=== PATIENT | female | born 1985 | race Caucasian/White ===

== ENCOUNTER 2016-11-25 22:57 | Emergency (ER) | payer MEDICAID ==
[~2016-11-25] VITALS: Ht 167.6 cm; Wt 78.0 kg
[~2016-11-25 22:57] MED LIST: ALBUAER3 INH; BACT800T5 PO; IBUP800T23 PO; MEDR150I IM; NORE1TAB58 PO; PROZ20CA11 PO; SELE1SHA3 TOPICAL; TRAM50TA PO; TRIA.1%T TOPICAL
[2016-11-25 22:59] VITALS: BP 137/64; PULSE 94; RESP 18; TEMP 98.2; O2SAT 99
[2016-11-26] MEDS ORDERED: LIDOCAINE 1%/EPINEPHrine 1:100,000 SOLN 20 ML VIAL ONE (02:37)
[2016-11-26] MEDS ORDERED: LIDOCAINE 0.5%/EPINEPHrine 1:200,000 SOLN 50 ML VIAL INFIL ONE (02:45)
[2016-11-26] MEDS ORDERED: ACETAMINOPHEN/CODEINE 300 MG/30 MG TAB PO ONE ×2 (02:45→04:00)
[2016-11-26] MEDS ORDERED: DOXYCYCLINE INJ 100 MG in SODIUM CHLORIDE 0.9% INJ 100 ML IV ONE (02:45)
[2016-11-26] MEDS ORDERED: cefTRIAXone INJ 1,000 MG in SODIUM CHLORIDE 0.9% INJ 100 ML IV ONE (02:45)
[2016-11-26 02:59] LABS: AUTOMATED NEUTROPHIL # 7.9 TH/MM3 (1.8-7.7); BASOPHIL % 0.4 % (0.0-2.0); EOSINOPHIL # 0.2 TH/MM3 (0-0.4); EOSINOPHIL % 1.4 % (0.0-4.0); HEMATOCRIT 38.9 % (35.0-46.0); HEMO FLAGS DIFF FINAL; LYMPH % 23.1 % (9.0-44.0); LYMPHOCYTE # 2.6 TH/MM3 (1.0-4.8); MEAN CELL VOLUME 90.6 FL (80.0-100.0); MEAN CORPUSCULAR HGB CONC 33.1 % (32.0-36.0); MONO % 5.2 % (0.0-8.0); NEUT % 69.9 % (16.0-70.0); PLATELET COUNT 226 TH/MM3 (150-450); RED CELL DISTRIBUTION WIDTH 13.8 % (11.6-17.2); WHITE BLOOD COUNT 11.3 TH/MM3 (4.0-11.0)
[2016-11-26] MEDS ORDERED: LORazepam 2 MG/ML VIAL ONE (03:23)
--- NOTE | 2016-11-26 03:36 | PD ---
HPI Chief Complaint: Skin Problem Time Seen by Provider: 02:11 Travel History International Travel<30 days: No Contact w/Intl Traveler<30days: No Traveled to known affect area: No History of Present Illness HPI This is a 30-year-old female who presents with a complaint of tenderness or redness warmth and swelling to the right forearm times several days patient denies fevers and chills. He is uncertain whether or not she is been bitten by an insect. PFSH Past Medical History Asthma: Yes Bipolar Disorder: Yes Anxiety: Yes Heart Rhythm Problems: Yes Cancer: No Diminished Hearing: No Endocrine: No Implanted Vascular Access Dvce: Yes Kidney Stones: Yes Musculoskeletal: Yes (SCOLIOSIS) Reproductive: No Myocardial Infarction: Yes (PT STATES [place] IN PAST, NO FOLLOW UP) Seizures: Yes ?: Not LMP: 11/19/16 : 3 Para: 2 Miscarriage: 1 : 1 Ovarian Cysts: Yes Past Surgical History Body Medical Devices: implanon in [place] Cholecystectomy: Yes Pacemaker: No Tonsillectomy: Yes Other Surgery: Yes Social History Alcohol Use: Yes (RARE) Tobacco Use: Yes (RARE) Substance Use: No Allergies-Medications (Allergen,Severity, Reaction): Coded Allergies: No Known Allergies (Verified , 11/25/16) Reported Meds & Prescriptions Reported Meds & Active Scripts Active Tylenol-Codeine #3 (Acetaminophen-Codeine) 300-30 mg Tab 1 Tab PO Q6-Q8 PRN Doxycycline Hyclate 100 Mg Cap 100 Mg PO BID 10 Days Keflex (Cephalexin) 500 Mg Cap 500 Mg PO Q12H 10 Days Tramadol (Tramadol HCl) 50 Mg Tab 100 Mg PO BID PRN Prozac (Fluoxetine HCl) 20 Mg Cap 20 Mg PO DAILY Loestrin Fe 1.5/30 (Norethindrone-Ethinyl Estradiol-Fe) 1.5-30 Mg-Mcg Tab 1 Tab PO DAILY Medroxyprogesterone Inj 150 Mg/Ml Inj 150 Mg IM Q90D Review of Systems ROS Limitations: Clinical Condition General / Constitutional: No: Fever, Chills, Weight Gain, Weight Loss, Other Eyes: No: Diploplia, Blurred Vision, Photophobia, Drainage, Redness, Foreign Body Sensation, Pain, Tearing, Blind Spots, Visual changes, Blindness, Other HENT: No: Headaches, Vertigo, Lightheadedness, Sore Throat, Rhinitis, Rhinorrhea, Congestion, Nosebleed, Neck Stiffness, Neck Pain, Masses, Gingival Bleeding, Dental Difficulties, Ear Discharge, Earache, Other Cardiovascular: No: Chest Pain or Discomfort, Palpitations, Irregular Rhythm, Tachycardia, Diaphoresis, Syncope, Dyspnea on exertion, Varicosities, Edema, Cyanosis, Varicosities, Phlebitis, Claudication, Other Respiratory: No: Cough, Shortness of Breath, Wheezing, Sneezing, Orthopnea, Hemoptysis, Stridor, Night Sweats, Pleuritic Pain, Other Gastrointestinal: No: Nausea, Vomiting, Diarrhea, Abdominal Pain, Hematemesis, Hematochezia, Constipation, Changes in Bowel Habits, Indigestion, Dysphagia, Loss of Appetite, Other Genitourinary: No: Urgency, Frequency, Dysuria, Nocturia, Hematuria, Decreased Urinary Output, Oliguria, Hesitancy, Dribbling, Incontinence, Pelvic Pain, Flank Pain, Dyspareunia, Discharge, Dysmenorrhea, Menorrhagia, Metorrhagia, Vaginal Bleeding, Other Musculoskeletal: No: Myalgias, Arthralgias, Limited ROM, Weakness, Cramping, Edema, Pain, Atrophy, Other Skin: Positive Lumps, Positive Lesions, Positive Other (change in:) Neurologic: No: Weakness, Dizziness, Syncope, Focal Abnormalities, Coordination Problem, Tremor, Ataxia, Headache, Change in Mentation, Slurred Speech, Paresthesia, Incontinence, Seizures, Sensory Disturbance, Other Psychiatric: No: Anxiety, Depression, Suicidal Ideations, Disorder of Thought, Mood Disorder, Substance Abuse, Homicidal Ideation, Other Endocrine: No: Heat Intolerance, Cold Intolerance, Polyuria, Polydipsia, Other Hematologic/Lymphatic: No: Easy Bruising, Lymph Node Enlargement, Other Data Data Last Documented VS Vital Signs Date Time Temp Pulse Resp B/P Pulse Ox O2 Delivery O2 Flow Rate FiO2 11/25/16 22:59 98.2 94 18 137/64 99 Room Air Orders Complete Blood Count With Diff (11/26/16 02:33) Tray, Incision & Drainage Ea (11/26/16 02:33) Acetamin-Codeine 300-30 Mg (Tylenol-Code (11/26/16 02:45) Ceftriaxone Inj (Rocephin Inj) (11/26/16 02:45) Doxycycline Inj (Vibramycin Inj) (11/26/16 02:45) Lidocai-Epi 0.5%-1:200,000 Inj (Xylocain (11/26/16 02:45) Lidocai-Epi 1%-1:100,000 Inj (Xylocaine- (11/26/16 02:37) Lorazepam Inj (Ativan Inj) (11/26/16 03:23) Wound Culture And Gram Stain (11/26/16 03:51) Acetamin-Codeine 300-30 Mg (Tylenol-Code (11/26/16 04:00) Labs Laboratory Tests Test 11/26/16 02:40 White Blood Count 11.3 TH/MM3 Red Blood Count 4.30 MIL/MM3 Hemoglobin 12.9 GM/DL Hematocrit 38.9 % Mean Corpuscular Volume 90.6 FL Mean Corpuscular Hemoglobin 30.0 PG Mean Corpuscular Hemoglobin 33.1 % Concent Red Cell Distribution Width 13.8 % Platelet Count 226 TH/MM3 Mean Platelet Volume 10.4 FL Neutrophils (%) (Auto) 69.9 % Lymphocytes (%) (Auto) 23.1 % Monocytes (%) (Auto) 5.2 % Eosinophils (%) (Auto) 1.4 % Basophils (%) (Auto) 0.4 % Neutrophils # (Auto) 7.9 TH/MM3 Lymphocytes # (Auto) 2.6 TH/MM3 Monocytes # (Auto) 0.6 TH/MM3 Eosinophils # (Auto) 0.2 TH/MM3 Basophils # (Auto) 0.0 TH/MM3 CBC Comment DIFF FINAL Differential Comment MDM Medical Decision Making Medical Screen Exam Complete: Yes Emergency Medical Condition: Yes Medical Record Reviewed: Yes Differential Diagnosis Differential diagnosis skin abscess cellulitis and insect bite Narrative Course His is a 22-year-old female presents with complaint of redness and tenderness of the right forearm and given Tylenol 3 then area cleaned with ChloraPrep and anesthetized with lidocaine with epi 1% using an 11 and scalpel and incised and purulent discharge expressed from the wound wound irrigated with normal saline after wound culture obtained Patient not tolerating procedure well as Dr. frank placed nonrebreather mask and gave patient 0.25 mg Ativan a stable tolerated the rest of the procedure which included packing of the wound iodoform gauze. Wound dressed with 4 x 4 and Kerlix and secured with tape patient instructed to return in 48 hours for wound check and further management She was given a dose of IV Rocephin and IV doxycycline to be discharged on Tylenol 3 doxycycline and Keflex Diagnosis Primary Impression: skin abscess Additional Impression: incision and drainage Scripts Acetaminophen-Codeine (Tylenol-Codeine #3)300-30 mg Tab1 Tab PO q6-q8 PRN (PAIN ) #15 TAB Ref 0 Prov:Jojo Cason MD 11/26/16 Doxycycline Hyclate 100 Mg [id number] Mg PO BID 10 Days Ref 0 Prov:Jojo Cason MD 11/26/16 Cephalexin (Keflex)500 Mg [id number] Mg PO Q12H 10 Days Ref 0 Prov:Jojo Cason MD 11/26/16 Disposition: 01 DISCHARGE HOME Condition: Stable Jojo Cason MD Nov 26, 2016 03:36
[2016-11-26] MEDS ORDERED: CEPH-460 PO (03:42)
[2016-11-26] MEDS ORDERED: DOXY100C PO (03:42)
[2016-11-26] MEDS ORDERED: TYLETAB34 PO (03:43)
[2016-11-26] MEDS ORDERED: LORazepam 2 MG/ML VIAL IV PUSH ONE (04:00)
== END 2016-11-26 04:25 | disposition home or self-care (01) ==
LOC: NEPC 22:57
DX: L02.413 Cutaneous abscess of right upper limb (principal)
CPT/HCPCS: 10061; 85025; 96365; 96368; 96375; 99285; J0696; J2060

== ENCOUNTER 2017-06-22 09:20 | Emergency (ER) | payer MEDICAID ==
[~2017-06-22] VITALS: Ht 167.6 cm; Wt 77.2 kg
[~2017-06-22 09:20] MED LIST changes: -BACT800T5 PO; +CEPH-460 PO; +DOXY100C PO; +GUAI1SOL3 PO; +IBUP1TAB7 PO; -IBUP800T23 PO; -TRIA.1%T TOPICAL; +TRIAM.1%T TOPICAL; +TYLETAB34 PO
[2017-06-22 09:33] VITALS: BP 115/61; TEMP 98.3; O2SAT 99
--- NOTE | 2017-06-22 10:21 | PD ---
HPI Chief Complaint: Cold / Flu Symptoms Time Seen by Provider: 10:08 Travel History International Travel<30 days: No Contact w/Intl Traveler<30days: No Traveled to known affect area: No History of Present Illness HPI 31-year-old female presents for evaluation. For 3 days she's been having myalgias, cough, congestion. Cough is dry. Her friend's daughter has had similar symptoms and is being evaluated here today as well. Denies recent travel. She has had some nausea and decreased appetite. No other complaints at this time. PFSH Past Medical History Asthma: Yes Bipolar Disorder: Yes Anxiety: Yes Heart Rhythm Problems: Yes Cancer: No Diminished Hearing: No Endocrine: No Implanted Vascular Access Dvce: Yes Kidney Stones: Yes Musculoskeletal: Yes (SCOLIOSIS) Reproductive: No Myocardial Infarction: Yes (PT STATES [place] IN PAST, NO FOLLOW UP) Seizures: Yes ?: Not : 3 Para: 2 Miscarriage: 1 : 1 Ovarian Cysts: Yes Past Surgical History Body Medical Devices: implanon in [place] Cholecystectomy: Yes Pacemaker: No Tonsillectomy: Yes Other Surgery: Yes Social History Alcohol Use: Yes (RARE) Tobacco Use: Yes (RARE) Substance Use: No Allergies-Medications (Allergen,Severity, Reaction): Coded Allergies: No Known Allergies (Verified Adverse Reaction, Unknown, 06/22/17) Reported Meds & Prescriptions Reported Meds & Active Scripts Active Ibuprofen 800 Mg Tab 800 Mg PO Q8H PRN Tramadol (Tramadol HCl) 50 Mg Tab 100 Mg PO BID PRN Proair Hfa 8.5 GM Inh (Albuterol Sulfate) 90 Mcg/Act Aer 2 Puff INH Q4-6H PRN 108 mcg/actuation Codeine/Guaifenesin 100-10 mg/5Ml (Guaifenesin-Codeine) 10 Mg-100 Mg/5 Ml Janelle 10 Ml PO Q4HR PRN Selenium Sulfide-Pyrithione Topical 2.25 % Sham 1 Applic TOPICAL [id number] Triamcinolone Topical (Triamcinolone Acetonide) 0.1 % Oint 1 Applic TOPICAL BID Apply topically to the affected area twice daily for inflammation Prozac (Fluoxetine HCl) 20 Mg Cap 20 Mg PO DAILY Tylenol-Codeine #3 (Acetaminophen-Codeine) 300-30 mg Tab 1 Tab PO Q6-Q8 PRN Doxycycline Hyclate 100 Mg Cap 100 Mg PO BID 10 Days Keflex (Cephalexin) 500 Mg Cap 500 Mg PO Q12H 10 Days Loestrin Fe 1.5/30 (Norethindrone-Ethinyl Estradiol-Fe) 1.5-30 Mg-Mcg Tab 1 Tab PO DAILY Medroxyprogesterone Inj 150 Mg/Ml Inj 150 Mg IM Q90D Review of Systems Except as stated in HPI: all other systems reviewed are Neg Physical Exam Narrative GENERAL: Well-developed well-nourished female in no acute distress SKIN: Warm and dry. HEAD: Atraumatic. Normocephalic. EYES: Pupils equal and round. No scleral icterus. No injection or drainage. ENT: No nasal bleeding or discharge. Mucous membranes pink and moist. No oropharyngeal erythema or exudate. NECK: Trachea midline. No JVD. No lymphadenopathy CARDIOVASCULAR: Regular rate and rhythm. No murmur appreciated. RESPIRATORY: No accessory muscle use. Clear to auscultation. Breath sounds equal bilaterally. GASTROINTESTINAL: Abdomen soft, mild suprapubic tenderness which the patient reports is chronic. MUSCULOSKELETAL: No obvious deformities. No clubbing. No cyanosis. No edema. NEUROLOGICAL: Awake and alert. No obvious cranial nerve deficits. Motor grossly within normal limits. Normal speech. PSYCHIATRIC: Appropriate mood and affect; insight and judgment normal. Data Data Last Documented VS Vital Signs Date Time Temp Pulse Resp B/P (MAP) Pulse Ox O2 Delivery O2 Flow Rate FiO2 06/22/17 09:33 98.3 74 18 115/61 (79) 99 Orders Orders Influenzae A/B Antigen (06/22/17 09:45) Acetaminophen (Tylenol) (06/22/17 10:30) Urinalysis - C+S If Indicated (06/22/17 10:21) Ed Urine Pregnancytest Poc (06/22/17 10:21) Ed Discharge Order (06/22/17 11:17) Labs Laboratory Tests Test 06/22/17 10:30 Urine Collection Type CLEAN CATCH Urine Color YELLOW Urine Turbidity CLEAR Urine pH 7.0 Urine Specific [place] 1.009 Urine Protein NEG mg/dL Urine Glucose (UA) NEG mg/dL Urine Ketones NEG mg/dL Urine Occult Blood NEG Urine Nitrite NEG Urine Bilirubin NEG Urine Leukocyte Esterase TRACE Urine WBC 3-5 /hpf Urine Squamous Epithelial Cells 0-5 /hpf Microscopic Urinalysis Comment CULT NOT INDICATED MDM Medical Decision Making Medical Screen Exam Complete: Yes Emergency Medical Condition: Yes Medical Record Reviewed: Yes Differential Diagnosis Influenza, bronchitis, pneumonia, sinusitis Narrative Course 31-year-old female with cough, congestion, myalgias for 3 days. On examination she has mild suprapubic tenderness which she reports is chronic. Urinalysis and urine tests were ordered and this is negative. Because of the chronicity of her pain this can be worked up further as an outpatient. Her acute symptoms are most consistent with a viral upper respiratory infection. In informed antigen test was performed and it is negative. Supportive care is recommended. She is stable for discharge. Diagnosis Primary Impression: Upper respiratory infection Additional Instructions: Tylenol and Motrin for fever. Stay well-hydrated and well-nourished. Follow- up with primary care physician as needed and return for any emergent medical conditions. Med/Other Pt SpecificInfo: No Change to Meds Disposition: 01 DISCHARGE HOME Condition: Stable Satnam Espino Jun 22, 2017 10:21
[2017-06-22] MEDS ORDERED: ACETAMINOPHEN 325 MG TAB PO ONE (10:30)
[2017-06-22 10:45] LABS: BILIRUBIN, URINE NEG (NEG); BLOOD, URINE NEG (NEG); GLUCOSE,URINE NEG (NEG); KETONE, URINE NEG (NEG); NITRITE,URINE NEG (NEG); URINE LEUKOCYTE ESTERASE TRACE (NEG)
[2017-06-22 11:13] LABS: URINE COLOR YELLOW (YELLW/STRAW)
[2017-06-22 11:14] LABS: SQUAMOUS EPITHELIAL CELL URINE 0-5 /hpf (0-5)
== END 2017-06-22 11:35 | disposition home or self-care (01) ==
LOC: PHEFT 09:20
DX: J06.9 Acute upper respiratory infection, unspecified (principal); J45.909 Unspecified asthma, uncomplicated; F31.9 Bipolar disorder, unspecified; F41.9 Anxiety disorder, unspecified; M41.9 Scoliosis, unspecified; I25.2 Old myocardial infarction; Z87.442 Personal history of urinary calculi; Z72.0 Tobacco use; Z79.899 Other long term (current) drug therapy
CPT/HCPCS: 81001; 84703; 87804; 99283